=== PATIENT | male | born 1995 | race Caucasian/White ===

== ENCOUNTER 2018-02-25 12:16 | Emergency (ER) | payer OTHER ==
[2018-02-25 12:50] VITALS: TEMP 97
[2018-02-25] MEDS ORDERED: KETOROLAC 30 MG/ML 1 ML VIAL IVP STA (13:10)
--- NOTE | 2018-02-25 13:17 | ED ---
General Adult HPI - General Chief complaint: Abdominal Pain Stated complaint: Abd Pain Time Seen by Provider: 02/25/18 13:01 Source: patient, RN notes reviewed Mode of arrival: ambulatory Limitations: no limitations - History of Present Illness Initial comments: Patient is a pleasant 22-year-old male presenting to the emergency department complaints of abdominal discomfort. Symptoms have been waxing and waning for the past 2-3 days. Discomfort is essentially resolved at this time. When discomfort is worse patient feels warm and has some associated nausea. Discomfort is not positional. Discomfort is mostly right lateral flank. There is some radiation towards the testicle. No history of similar symptoms previously. No dysuria or hematuria. - Related Data Home Medications Medication Instructions Recorded Confirmed No Known Home Medications [No 05/17/14 05/17/14 Known Home Medications] Allergies Allergy/AdvReac Type Severity Reaction Status Date / Time No Known Allergies Allergy Verified 02/25/18 12:50 Review of Systems ROS Statement: Those systems with pertinent positive or pertinent negative responses have been documented in the HPI. ROS Other: All systems not noted in ROS Statement are negative. Constitutional: Denies: fever Eyes: Denies: eye pain ENT: Denies: ear pain Respiratory: Denies: cough Cardiovascular: Denies: chest pain Endocrine: Denies: fatigue Gastrointestinal: Reports: abdominal pain, nausea. Denies: vomiting Genitourinary: Denies: dysuria, hematuria Musculoskeletal: Denies: back pain Skin: Denies: rash Neurological: Denies: weakness Past Medical History Past Medical History: No Reported History History of Any Multi-Drug Resistant Organisms: None Reported Past Surgical History: No Surgical Hx Reported Past Psychological History: No Psychological Hx Reported Smoking Status: Former smoker Past Alcohol Use History: Occasional Past Drug Use History: None Reported General Exam Limitations: no limitations General appearance: alert, in no apparent distress Head exam: Present: atraumatic Eye exam: Present: normal appearance Neck exam: Present: normal inspection Respiratory exam: Present: normal lung sounds bilaterally Cardiovascular Exam: Present: regular rate, normal rhythm GI/Abdominal exam: Present: soft. Absent: distended, tenderness, guarding, rebound, rigid exam: Present: normal inspection. Absent: testicular tenderness, scrotal swelling Neurological exam: Present: alert Psychiatric exam: Present: normal affect, normal mood Skin exam: Present: normal color Course Vital Signs 02/25/18 12:47 Temperature 97 F L Pulse Rate 67 Respiratory 18 Rate Blood Pressure 127/82 O2 Sat by Pulse 100 Oximetry Medical Decision Making - Medical Decision Making Patient reevaluated and resting comfortably in bed. There is very low clinical suspicion for appendicitis. Patient is updated on results and need for close follow-up. Patient is aware that appendix is not visualized on computed tomography scan and well suspicion is low it cannot be 100% excluded. Patient also advised to return for worsening symptoms. - Lab Data Result diagrams: 02/25/18 13:24 02/25/18 13:24 Lab Results 02/25/18 02/25/18 02/25/18 Range/Units 13:24 13:24 13:24 WBC 5.1 (3.8-10.6) k/uL RBC 4.84 (4.30-5.90) m/uL Hgb 14.9 (13.0-17.5) gm/dL Hct 43.4 (39.0-53.0) % MCV 89.7 (80.0-100.0) fL MCH 30.8 (25.0-35.0) pg MCHC 34.4 (31.0-37.0) g/dL RDW 12.5 (11.5-15.5) % Plt Count 326 (150-450) k/uL Neutrophils % 69 % Lymphocytes % 24 % Monocytes % 5 % Eosinophils % 1 % Basophils % 0 % Neutrophils # 3.5 (1.3-7.7) k/uL Lymphocytes # 1.2 (1.0-4.8) k/uL Monocytes # 0.3 (0-1.0) k/uL Eosinophils # 0.0 (0-0.7) k/uL Basophils # 0.0 (0-0.2) k/uL PT 10.4 (9.0-12.0) sec INR 1.1 (<1.2) APTT 22.1 (22.0-30.0) sec Sodium 141 (137-145) mmol/L Potassium 4.5 (3.5-5.1) mmol/L Chloride 98 (98-107) mmol/L Carbon Dioxide 30 (22-30) mmol/L Anion Gap 13 mmol/L BUN 10 (9-20) mg/dL Creatinine 0.77 (0.66-1.25) mg/dL Est GFR (CKD-EPI)AfAm >90 (>60 ml/min/1.73 sqM) Est GFR (CKD-EPI)NonAf >90 (>60 ml/min/1.73 sqM) Glucose 88 (74-99) mg/dL Calcium 9.7 (8.4-10.2) mg/dL Total Bilirubin 0.8 (0.2-1.3) mg/dL AST 21 (17-59) U/L ALT 30 (21-72) U/L Alkaline Phosphatase 53 (38-126) U/L Total Protein 7.5 (6.3-8.2) g/dL Albumin 4.9 (3.5-5.0) g/dL Amylase 69 (30-110) U/L Lipase 63 (23-300) U/L Urine Color Urine Appearance (Clear) Urine pH (5.0-8.0) Ur Specific Re[place] (1.001-1.035) Urine Protein (Negative) Urine Glucose (UA) (Negative) Urine Ketones (Negative) Urine Blood (Negative) Urine Nitrite (Negative) Urine Bilirubin (Negative) Urine Urobilinogen (<2.0) mg/dL Ur Leukocyte Esterase (Negative) 02/25/18 Range/Units 13:24 WBC (3.8-10.6) k/uL RBC (4.30-5.90) m/uL Hgb (13.0-17.5) gm/dL Hct (39.0-53.0) % MCV (80.0-100.0) fL MCH (25.0-35.0) pg MCHC (31.0-37.0) g/dL RDW (11.5-15.5) % Plt Count (150-450) k/uL Neutrophils % % Lymphocytes % % Monocytes % % Eosinophils % % Basophils % % Neutrophils # (1.3-7.7) k/uL Lymphocytes # (1.0-4.8) k/uL Monocytes # (0-1.0) k/uL Eosinophils # (0-0.7) k/uL Basophils # (0-0.2) k/uL PT (9.0-12.0) sec INR (<1.2) APTT (22.0-30.0) sec Sodium (137-145) mmol/L Potassium (3.5-5.1) mmol/L Chloride (98-107) mmol/L Carbon Dioxide (22-30) mmol/L Anion Gap mmol/L BUN (9-20) mg/dL Creatinine (0.66-1.25) mg/dL Est GFR (CKD-EPI)AfAm (>60 ml/min/1.73 sqM) Est GFR (CKD-EPI)NonAf (>60 ml/min/1.73 sqM) Glucose (74-99) mg/dL Calcium (8.4-10.2) mg/dL Total Bilirubin (0.2-1.3) mg/dL AST (17-59) U/L ALT (21-72) U/L Alkaline Phosphatase (38-126) U/L Total Protein (6.3-8.2) g/dL Albumin (3.5-5.0) g/dL Amylase (30-110) U/L Lipase (23-300) U/L Urine Color Yellow Urine Appearance Clear (Clear) Urine pH 6.5 (5.0-8.0) Ur Specific [place]pton 1.019 (1.001-1.035) Urine Protein Trace H (Negative) Urine Glucose (UA) Negative (Negative) Urine Ketones Negative (Negative) Urine Blood Negative (Negative) Urine Nitrite Negative (Negative) Urine Bilirubin Negative (Negative) Urine Urobilinogen <2.0 (<2.0) mg/dL Ur Leukocyte Esterase Negative (Negative) - Radiology Data Radiology results: report reviewed (Computed tomography scan of the abdomen pelvis does show some bladder wall thickening. Appendix is not visualized. No definite suspicious changes right lower quadrant.) Disposition Clinical Impression: Abdominal pain Disposition: HOME SELF-CARE Condition: Stable Instructions: Abdominal Pain (ED) Additional Instructions: Please follow-up with primary care physician or surgeon in the next 24 hours for recheck. Return for increased abdominal pain, fever, vomiting, worsening symptoms or other concerns. Is patient prescribed a controlled substance at d/c from ED?: No Referrals: Denny Roman MD [STAFF PHYSICIAN] - 1-2 days Laura Talamantes DO [Doctor of Osteopathic Medicine] - 1-2 days Terell Khanna MD [STAFF PHYSICIAN] - 1-2 days Time of Disposition: 14:41
[2018-02-25 13:43] LABS: Appearance,Urine Clear (Clear); Bilirubin,Urine Negative (Negative); Blood,Urine Negative (Negative); Color,Urine Yellow; Glucose,Urine (UA) Negative (Negative); Ketones,Urine Negative (Negative); Leukocyte Esterase,Urine Negative (Negative); Nitrite,Urine Negative (Negative); PH, Urine 6.5 (5.0-8.0); Protein,Urine Trace (Negative); Specific Gravity,Urine 1.019 (1.001-1.035); Urobilinogen,Urine <2.0 mg/dL (<2.0)
[2018-02-25 13:45] LABS: Basophils % (A) 0 %; Eosinophils % (A) 1 %; HCT 43.4 % (39.0-53.0); HGB 14.9 gm/dL (13.0-17.5); Lymphocytes # (A) 1.2 k/uL (1.0-4.8); Lymphocytes % (A) 24 %; MCH 30.8 pg (25.0-35.0); MCHC 34.4 g/dL (31.0-37.0); MCV 89.7 fL (80.0-100.0); Mean Platelet Volume 6.6; Monocytes # (A) 0.3 k/uL (0-1.0); Monocytes % (A) 5 %; Neutrophils # (A) 3.5 k/uL (1.3-7.7); Neutrophils % (A) 69 %; Platelet Count 326 k/uL (150-450); RBC 4.84 m/uL (4.30-5.90); RDW 12.5 % (11.5-15.5); WBC 5.1 k/uL (3.8-10.6)
[2018-02-25 13:54] LABS: ALT 30 U/L (21-72); AST 21 U/L (17-59); Albumin 4.9 g/dL (3.5-5.0); Alkaline Phosphatase 53 U/L (38-126); Amylase 69 U/L (30-110); Anion Gap 13 mmol/L; Blood Urea Nitrogen 10 mg/dL (9-20); Calcium 9.7 mg/dL (8.4-10.2); Carbon Dioxide 30 mmol/L (22-30); Chloride 98 mmol/L (98-107); Glucose 88 mg/dL (74-99); Lipase 63 U/L (23-300); Potassium 4.5 mmol/L (3.5-5.1); Sodium 141 mmol/L (137-145); Total Bilirubin 0.8 mg/dL (0.2-1.3); Total Protein 7.5 g/dL (6.3-8.2)
[2018-02-25 13:58] LABS: INR 1.1 (<1.2); Partial Thromboplastin Time 22.1 sec (22.0-30.0); Prothrombin Time 10.4 sec (9.0-12.0)
--- NOTE | 2018-02-25 14:25 | CT ---
EXAMINATION TYPE: CT abdomen pelvis wo con DATE OF EXAM: 02/25/2018 COMPARISON: NONE HISTORY: 22-year-old male right flank pain, Right lower quadrant pain and groin pain CT DLP: 240 mGycm. Automated exposure control for dose reduction was used. TECHNIQUE: Contiguous axial scanning of the abdomen and pelvis without IV contrast. Coronal and sagit garima reconstructions performed. FINDINGS: Heart is normal size. Lung bases clear without pleural effusion. Noncontrast appearance of the liver, gallbladder, adrenal glands, and pancreas show no gross abnormal ity. A few calcified granulomas within the spleen. No nephrolithiasis or hydronephrosis. Possibility of intra-abdominal fat limits assessment for lymphadenopathy. Scattered prominent but non enlarged mesenteric lymph nodes are noted. Unable to identify the appendix due to tightly clustered bowel loops. No dilated small bowel, free fluid, or free air. Mild overall stone burden. Mild circumferential bladder wall thickening. No abnormal fluid collection seen in the pelvis. Bones: No osseous destructive process. IMPRESSION: 1. No nephrolithiasis or hydronephrosis. 2. Circumferential bladder wall thickening. Correlate to exclude cystitis. 3. Appendix could not be visualized due to combination of clustered bowel loops, paucity of intra-abd ominal fat, and lack of contrast. No definite suspicious changes in the right lower quadrant to sugge st acute appendicitis. Further clinical correlation would be needed.
[2018-02-25 15:23] VITALS: BP 125/74; PULSE 86; RESP 16
== END 2018-02-25 15:20 | disposition home or self-care (01) ==
LOC: EC 12:16
DX: R10.9 Unspecified abdominal pain (principal); N32.89 Other specified disorders of bladder; R11.0 Nausea; N50.811 Right testicular pain; Z87.891 Personal history of nicotine dependence
CPT/HCPCS: 36415; 80053; 82150; 83690; 85025; 85610; 85730; 81003; 74176; 99284; 96374; J1885

== ENCOUNTER → 2020-05-06 | Outpatient (CLI) | payer SELFPAY ==
--- NOTE | 2020-05-06 13:08 | US ---
EXAMINATION TYPE: US abdomen complete DATE OF EXAM: 05/06/2020 COMPARISON: CT 2018 CLINICAL HISTORY: R10.11 R upper quad pain. RUQ pain EXAM MEASUREMENTS: Liver Length: 15.8 cm Gallbladder Wall: 0.2 cm CBD: 0.3 cm Spleen: 9.9 cm Right Kidney: 9.9 x 4.2 x 5.6 cm Left Kidney: 9.9 x 5.1 x 4.4 cm Pancreas: wnl Liver: wnl Gallbladder: wnl Evidence for sonographic Smith's sign: no CBD: wnl Spleen: multiple tiny echogenic foci scattered throughout, 1.2 x 1.0 x 1.1cm isoechoic area, possibl e accessory spleen Right Kidney: wnl Left Kidney: visualized portions wnl, limited by rib shadowing and overlying bowel gas Upper IVC: wnl Abd Aorta: wnl IMPRESSION: 1. Scattered granuloma within the spleen. Accessory spleen is present. 2. No suspicious acute changes.
== END | disposition home or self-care (01) ==
LOC: RADUSWWP 07:35
PROVIDERS: ATTEND Family Medicine
DX: D73.89 Other diseases of spleen (principal); Q89.09 Congenital malformations of spleen
CPT/HCPCS: 76700

== ENCOUNTER → 2020-07-30 | Outpatient (CLI) | payer OTHER ==
--- NOTE | 2020-07-30 09:20 | CT ---
EXAMINATION TYPE: CT abdomen wo con DATE OF EXAM: 07/30/2020 COMPARISON: 02/25/2018 HISTORY: 24-year-old male with right sided pain, splenomegaly TECHNIQUE: Contiguous axial scanning of the abdomen without IV contrast. Coronal and sagittal reconst ructions performed. CT DLP: 146.5 mGycm Automated exposure control for dose reduction was used. FINDINGS: Heart normal size without pericardial effusion. Lung bases clear without pleural effusion. Liver mildly enlarged at 18.0 cm. Otherwise, noncontrast appearance of the liver, gallbladder, adrenal glands, kidneys, and pancreas sh ow no gross abnormality. Spleen measures 11.2 cm, within normal limits. Couple small calcified granuloma are present within. T here is a hilar splenule. Scattered prominent but nonenlarged mesenteric lymph nodes measuring up to 6 mm are nonspecific. Thes e do not appear significantly changed from 2018. No nephrolithiasis or hydronephrosis. No dilated small bowel, free fluid, free air. Scattered mild to moderate stool. No pericolonic inflam matory change. The pelvis is not imaged. Bones: No osseous destructive process. IMPRESSION: 1. MILD HEPATOMEGALY AT 18.0 CM. SPLEEN IS NORMAL SIZE AT 11.2 CM BUT DEMONSTRATES EVIDENCE OF OLD GR ANULOMATOUS DISEASE. 2. NO RENAL CALCULI OR HYDRONEPHROSIS.
== END | disposition home or self-care (01) ==
LOC: RADCTMAIN 07:34
PROVIDERS: ATTEND Family Medicine
DX: R16.0 Hepatomegaly, not elsewhere classified (principal); D71 Functional disorders of polymorphonuclear neutrophils
CPT/HCPCS: 74150